=== PATIENT | female | born 1970 | race Caucasian/White ===

== ENCOUNTER 2021-01-20 19:36 | Emergency (ER) | payer BC ==
[~2021-01-20] VITALS: Ht 175.3 cm; Wt 87.1 kg
[2021-01-20] MEDS ORDERED: TRIMETHOPRIM/SULFAMETHOXAZOLE 160-800 MG TAB PO ONE (20:15)
[2021-01-20] MEDS ORDERED: PYRIDIUM100 MG PO ×2 (20:21→20:31)
[2021-01-20] MEDS ORDERED: BACTRIM DS TAB1 EACH PO (20:21)
[2021-01-20] MEDS ORDERED: CEFTRIAXONE 1 GM VIAL IM ONE (20:30)
[2021-01-20] MEDS ORDERED: CEPHALEXIN500 MG PO (20:31)
[2021-01-20] MEDS ORDERED: CEFTRIAXONE 1 GM VIAL ONE (20:37)
== END 2021-01-20 21:09 | disposition home or self-care (01) ==
LOC: FSED 19:45
DX: R30.0 Dysuria (principal); R39.15 Urgency of urination; E11.22 Type 2 diabetes mellitus with diabetic chronic kidney disease; N18.9 Chronic kidney disease, unspecified; Z99.2 Dependence on renal dialysis
CPT/HCPCS: 81003; 99283; J0696

== ENCOUNTER 2022-10-10 13:30 | Emergency (ER) | payer BC, MEDICARE ==
[~2022-10-10] VITALS: Ht 175.3 cm; Wt 74.9 kg
[~2022-10-10 13:30] MED LIST: BACTRIM DS TAB1 EACH PO; CEPHALEXIN500 MG PO; PYRIDIUM100 MG PO
[2022-10-10] MEDS ORDERED: METOCLOPRAMIDE HCL 10 MG/2ML VIAL IV ONE (15:45)
[2022-10-10] MEDS ORDERED: DIPHENHYDRAMINE HCL INJ 50 MG/ML VIAL IV ONE ×2 (15:45→16:45)
[2022-10-10] MEDS ORDERED: DIPHENHYDRAMINE HCL INJ 50 MG/ML VIAL ONE ×2 (15:56→16:32)
[2022-10-10] MEDS ORDERED: METOCLOPRAMIDE HCL 10 MG/2ML VIAL ONE (15:56)
[2022-10-10] MEDS ORDERED: Morphine 4mg INJECTION 4 MG/ML INJ IV ONE (17:15)
[2022-10-10] MEDS ORDERED: ONDANSETRON HCL INJ 2MG/ML 2ML 2 MG/ML VIAL IV STA (17:15)
[2022-10-10] MEDS ORDERED: ONDANSETRON HCL INJ 2MG/ML 2ML 2 MG/ML VIAL ONE (17:18)
[2022-10-10] MEDS ORDERED: Morphine 4mg INJECTION 4 MG/ML INJ ONE (17:19)
[2022-10-10] MEDS ORDERED: ULTRAM 50MG50 MG PO ×2 (18:05→18:07)
[2022-10-10 18:20] VITALS: O2SAT 94
== END 2022-10-10 18:20 | disposition home or self-care (01) ==
LOC: FSED 13:54
DX: G24.02 Drug induced acute dystonia (principal); T50.915A Adverse effect of multiple unspecified drugs, medicaments and biological substances, initial encounter; G44.52 New daily persistent headache (NDPH); E11.22 Type 2 diabetes mellitus with diabetic chronic kidney disease; I12.0 Hypertensive chronic kidney disease with stage 5 chronic kidney disease or end stage renal disease; N18.6 End stage renal disease; Z99.2 Dependence on renal dialysis; Z87.891 Personal history of nicotine dependence; Z79.899 Other long term (current) drug therapy
CPT/HCPCS: 70450; 80048; 85025; 96374; 96375; 96376; 99284; J1200; J2270; J2405; J2765

== ENCOUNTER 2022-10-14 21:58 | Emergency (ER) | payer MEDICARE ==
[~2022-10-14] VITALS: Ht 175.3 cm; Wt 74.8 kg
[~2022-10-14 21:58] MED LIST changes: +ULTRAM 50MG50 MG PO
[2022-10-14] MEDS ORDERED: KETOROLAC TROMETHAMINE 30 MG/ML VIAL IV STA (22:37)
[2022-10-14] MEDS ORDERED: DEXAMETHASONE SOD PHOS INJ 4 MG/ML SDV IV ONE (22:45)
[2022-10-14] MEDS ORDERED: Morphine 4mg INJECTION 4 MG/ML INJ IV ONE (22:45)
[2022-10-14] MEDS ORDERED: METOCLOPRAMIDE HCL 10 MG/2ML VIAL IV ONE (22:45)
[2022-10-14] MEDS ORDERED: DEXAMETHASONE SOD PHOS INJ 4 MG/ML SDV ONE (22:51)
[2022-10-14] MEDS ORDERED: KETOROLAC TROMETHAMINE 30 MG/ML VIAL ONE (22:51)
[2022-10-14] MEDS ORDERED: METOCLOPRAMIDE HCL 10 MG/2ML VIAL ONE (22:51)
[2022-10-14] MEDS ORDERED: Morphine 4mg INJECTION 4 MG/ML INJ ONE (22:51)
[2022-10-14 23:32] VITALS: O2SAT 97
[2022-10-14] MEDS ORDERED: REGLAN10 MG PO (23:36)
== END 2022-10-14 23:42 | disposition home or self-care (01) ==
LOC: FSED 22:12
DX: R51.9 Headache, unspecified (principal); E11.22 Type 2 diabetes mellitus with diabetic chronic kidney disease; N18.9 Chronic kidney disease, unspecified; Z99.2 Dependence on renal dialysis; F41.9 Anxiety disorder, unspecified; D68.51 Activated protein C resistance
CPT/HCPCS: 80053; 85025; 99283; J1100; J1885; J2270; J2765